=== PATIENT | female | born 1985 | race Caucasian/White ===

== ENCOUNTER 2022-06-11 20:34 | Emergency (ER) | payer MEDICAID, OTHER ==
[~2022-06-11] VITALS: Ht 152.4 cm; Wt 52.2 kg
[2022-06-11 21:19] VITALS: BP 235/130
--- NOTE | 2022-06-11 21:28 | NUR ---
TO LOBBY FOLLOWING TRIAGE. DR RON EXAMINED PT IN TRIAGE
[2022-06-11] MEDS ORDERED: HYDROcodone/APAP 5/325 MG 1 TAB TAB PO ONE (21:30)
[2022-06-11] MEDS ORDERED: lisinopriL 20 MG TAB PO ONE (21:30)
--- NOTE | 2022-06-11 21:36 | NUR ---
BP 235/130. PATIENT MEDICATED PER ORDERS. PATIENT TOLERATED WELL. PATIENT BACK TO LOBBY.
--- NOTE | 2022-06-11 23:30 | NUR ---
PT PLACED IN LEFT AIR CAST SPLINT CMS WNL BEFORE AND AFTER. PT ALSO GIVEN CRUTCHES THAT WERE ADJUSTED TO PT'S SIZE AND HEIGHT. PT SHOWED PROPER DEMONSTRAION ON HOW TO USE CRUTCHES AND PT HAD NO FURTHER QUESTIONS. CALLY AND RN NOTIFIED.
[2022-06-11 23:35] VITALS: BP 235/130
--- NOTE | 2022-06-11 23:35 | NUR ---
Patient discharged with v/s stable. Written and verbal after care instructions given and explained. Patient verbalized understanding. Ambulatory with steady gait. All questions addressed prior to discharge. Advised to follow up with PMD.
== END 2022-06-11 23:35 | disposition home or self-care (01) ==
LOC: MED 20:34
DX: S93.402A Sprain of unspecified ligament of left ankle, initial encounter (principal); I10 Essential (primary) hypertension; E11.9 Type 2 diabetes mellitus without complications; Z79.4 Long term (current) use of insulin; Z79.899 Other long term (current) drug therapy; X58.XXXA Exposure to other specified factors, initial encounter; Y93.89 Activity, other specified; Y92.89 Other specified places as the place of occurrence of the external cause; Y99.8 Other external cause status
CPT/HCPCS: 29515; 73610; 73630; 99284